=== PATIENT | male | born 1960 ===

== ENCOUNTER 2017-05-30 09:27 | Observation (INO) | payer MEDICAID, OTHER ==
--- NOTE | 2017-05-30 10:19 | ED PDOC ---
HPI: Chest Pain Time Seen by Provider: 05/30/17 10:17 Chief Complaint (Nursing): Chest Pain Chief Complaint (Provider): cp History Per: Patient (56 y/o male h/o HIV last CD4 405 here with chest pain intermittent midsternal since yesterday. States he notices pain at time with respiration but does not feel it is related. Has had coughing x 2 weeks prior. Notes he has been under a lot of emotional stress since of father x 1 year. Denies any radiation of pain.) Past Medical History Reviewed: Historical Data, Nursing Documentation, Vital Signs Vital Signs: Last Vital Signs Temp 97.9 F 05/30/17 09:55 Pulse 77 05/30/17 09:55 Resp 18 05/30/17 09:55 BP 125/62 05/30/17 09:55 Pulse Ox 98 05/30/17 10:19 - Medical History PMH: HIV - Family History Family History: States: No Known Family Hx - Home Medications Home Medications: Ambulatory Orders Medication Instructions Recorded Neomycin/Polymyxin/Hydrocort 1 drop AD QID #1 bottle 03/26/15 [Cortisporin Otic Soln] Ibuprofen [Motrin] 600 mg PO Q8 PRN #15 tab 05/30/17 - Allergies Allergies/Adverse Reactions: Allergies Allergy/AdvReac Type Severity Reaction Status Date / Time No Known Allergies Allergy Verified 03/26/15 10:23 Review of Systems ROS Statement: Except As Marked, All Systems Reviewed And Found Negative Cardiovascular: Positive for: Chest Pain Physical Exam - Reviewed Nursing Documentation Reviewed: Yes Vital Signs Reviewed: Yes - Physical Exam Appears: Positive for: Well, Non-toxic, No Acute Distress Head Exam: Positive for: ATRAUMATIC, NORMAL INSPECTION, NORMOCEPHALIC Skin: Positive for: Normal Color, Warm, DRY Eye Exam: Positive for: EOMI, Normal appearance, PERRL ENT: Positive for: Normal ENT Inspection Neck: Positive for: Normal, Painless ROM Cardiovascular/Chest: Positive for: Regular Rate, Rhythm Respiratory: Positive for: CNT, Normal Breath Sounds Gastrointestinal/Abdominal: Positive for: Normal Exam, Bowel Sounds, Soft Back: Positive for: Normal Inspection Extremity: Positive for: Normal ROM Neurologic/Psych: Positive for: Alert, Oriented - Laboratory Results Result Diagrams: 05/30/17 11:35 05/30/17 11:35 - ECG O2 Sat by Pulse Oximetry: 98 - Progress ED Course And Treament: xry of hand right: no fx noted placed in ulnar gutter splint as he is quite tender at fourth mcp. Will f/u with his orthopedist. Disposition - Clinical Impression Clinical Impression: Hand injury - Patient ED Disposition Is Patient to be Admitted: No - Disposition Disposition: Routine/Home Disposition Time: 12:21 Condition: FAIR Additional Instructions: PLEASE F/U WITH YOUR PRIVATE ORTHOPEDIST FOR FURTHER EVALUATION OF HAND INJURY Prescriptions: Ibuprofen [Motrin] 600 mg PO Q8 PRN #15 tab PRN Reason: Pain, Moderate (4-7) Instructions: Contusion (DC) Forms: [facility] ([place]ian), [facility] ED School/Work Excuse
[2017-05-30 11:52] LABS: ALB/GLOB RATIO 1.1 (1.0-2.1); ALBUMIN 4.1 g/dL (3.5-5.0); ALT/SGPT 38 U/L (21-72); AST/SGOT 26 U/L (17-59); BASO % 0.5 % (0.0-2.0); BLOOD UREA NITROGEN 13 mg/dl (9-20); EOS # 0.1 K/uL (0.0-0.7); EOS % 1.5 % (0.0-4.0); GFR AFRICAN-AMERICAN > 60; GFR NON-AFRICAN AMERICAN > 60; HEMOGLOBIN 13.4 g/dL (12.0-18.0); LYMPH # 2.5 K/uL (1.0-4.3); LYMPH % 37.7 % (20.0-40.0); MAGNESIUM 2.5 MG/DL (1.6-2.3); MEAN CELL VOLUME 94.1 fl (80.0-94.0); MEAN CORPUSCULAR HEMOGLOBIN 32.8 pg (27.0-31.0); MEAN CORPUSCULAR HGB CONC 34.8 g/dL (33.0-37.0); MEAN PLATELET VOLUME 8.4 fl (7.2-11.7); MONO # 0.4 K/uL (0.0-0.8); MONO % 6.8 % (0.0-10.0); NEUT # 3.5 K/uL (1.8-7.0); NEUT % 53.5 % (50.0-75.0); NRBC % 0.1 % (0.0-0.0); RBC 4.09 Mil/uL (4.40-5.90); RED CELL DISTRIBUTION WIDTH 12.7 % (11.5-14.5); WHITE BLOOD COUNT 6.5 K/uL (4.8-10.8)
[2017-05-30 12:14] LABS: BARBITURATES, UR NEGATIVE (NEGATIVE); BENZODIAZEPINES, UR NEGATIVE (NEGATIVE); OPIATES, UR NEGATIVE (NEGATIVE); PHENCYCLIDINE, UR NEGATIVE (NEGATIVE)
--- NOTE | 2017-05-30 12:39 | RAD ---
HISTORY: cp COMPARISON: No prior. FINDINGS: LUNGS: No active pulmonary disease. PLEURA: No significant pleural effusion identified, no pneumothorax apparent. CARDIOVASCULAR: Normal. OSSEOUS STRUCTURES: No significant abnormalities. VISUALIZED UPPER ABDOMEN: Normal. OTHER FINDINGS: None. IMPRESSION: No active disease.
--- NOTE | 2017-05-30 17:17 | CP.PCM.HP ---
History of Present Illness - History of Present Illness History of Present Illness: CC: chest pain HPI: The patient is a 56 y/o man w/ pmh of HIV (not AIDS, CD4 420 as of 2017) and depression presents to the ED w/ chest pain. Patient reports chest pain on the left midsternal region that started yesterday. Patient reports previous similar pain 05/28/2017 that occurred at night and the patient slept it off without interrupting his sleep. The patient reports associated non- productive cough and pain with deep respiration and palpation. The patient reports cough for 2 weeks. The patient works as a local delivery driver, loads , and transports goods. The patient denies headaches, dizziness, SOB, abdominal pain, nausea, vomiting, diarrhea, dysuria, or fever. PMD: Dr. Rojas (last seen 04/25/2017) PMH: HIV not AIDS (viral load 70, CD4 420 as of 04/14/2017) allergies: NKDA meds: Truvada (Emtrictabine/tenofovir) 200-300 mg PO daily, Tivicay ( dolutegravir) 50 mg PO daily, Prezcobix (Darunavir/Cobicistat) 800-150 mg PO daily, buproprion 150 mg PO daily, mirtazapine 7.5 mg PO HS, calcium/vitamin D 500-200 mg PO daily PSH: none FamHx: father 1 year ago SOC: denies smoking, alcohol, and drugs ROS: 12 points assessed and negative unless otherwise reported in HPI ED course: vitals: 97.9 F, 77 beats/min, 125/62 mm Hg, resp 18, O2 98% RA CBC: 6.5>13.4/38.5<310 CMP: 143/4.2, 7/25, 13/0.9, glucose 97, AST 26, ALT 38, alk phos 82 troponin: <0.0120 magnesium: 2.5 D-dimer: 65 urine drug screen: negative EKG: (preliminary) NSR, possible ST depression I, AVL, V5, V6 CXR: no active disease given aspirin 324 mg PO Present on Admission - Present on Admission Any Indicators Present on Admission: No History of DVT/PE: No History of Uncontrolled Diabetes: No Urinary Catheter: No Decubitus Ulcer Present: No Review of Systems - Review of Systems All systems: reviewed and no additional remarkable complaints except - Constitutional Constitutional: absent: Chills, Fever - EENT Eyes: absent: Change in Vision - Cardiovascular Cardiovascular: As Per HPI, Chest Pain. absent: Pain Radiating to Arm/Neck/Jaw , Palpitations, Pedal Edema, Syncope - Respiratory Respiratory: Cough. absent: Dyspnea, Hemoptysis - Gastrointestinal Gastrointestinal: absent: Abdominal Pain, Diarrhea, Nausea, Vomiting - Genitourinary Genitourinary: absent: Dysuria - Integumentary Integumentary: absent: Rash - Neurological Neurological: absent: Dizziness, Headaches Past Patient History - Past Social History Smoking Status: Never Smoked - HEMATOLOGICAL/ONCOLOGICAL Hx Human Immunodeficiency Virus (HIV): Yes - PSYCHIATRIC Hx Substance Use: No - SURGICAL HISTORY Hx Surgeries: No Meds Allergies/Adverse Reactions: Allergies Allergy/AdvReac Type Severity Reaction Status Date / Time No Known Allergies Allergy Verified 03/26/15 10:23 Physical Exam - Constitutional Appears: Non-toxic, No Acute Distress - Head Exam Head Exam: ATRAUMATIC, NORMAL INSPECTION, NORMOCEPHALIC - Eye Exam Eye Exam: Normal appearance - ENT Exam ENT Exam: Mucous Membranes Moist - Respiratory Exam Respiratory Exam: Clear to Auscultation Bilateral. absent: Decreased Breath Sounds, Rales, Rhonchi, Wheezes, Respiratory Distress - Cardiovascular Exam Cardiovascular Exam: REGULAR RHYTHM, RRR. absent: Tachycardia - GI/Abdominal Exam GI & Abdominal Exam: Normal Bowel Sounds, Soft. absent: Distended, Tenderness - Extremities Exam Extremities exam: Positive for: normal inspection. Negative for: calf tenderness, pedal edema, tenderness - Neurological Exam Neurological exam: Alert, Oriented x3 - Skin Skin Exam: Dry Results - Vital Signs Recent Vital Signs: Last Vital Signs Temp 98 F 05/30/17 14:51 Pulse 66 05/30/17 14:51 Resp 18 05/30/17 14:51 BP 110/67 05/30/17 14:51 Pulse Ox 99 05/30/17 14:50 - Labs Result Diagrams: 05/30/17 11:35 05/30/17 11:35 Labs: Laboratory Results - last 24 hr 05/30/17 05/30/17 05/30/17 11:35 11:35 11:35 WBC 6.5 D RBC 4.09 L Hgb 13.4 Hct 38.5 MCV 94.1 H MCH 32.8 H MCHC 34.8 RDW 12.7 Plt Count 310 MPV 8.4 Neut % (Auto) 53.5 Lymph % (Auto) 37.7 [place] % (Auto) 6.8 Eos % (Auto) 1.5 Baso % (Auto) 0.5 Neut # (Auto) 3.5 Lymph # (Auto) 2.5 [place] # (Auto) 0.4 Eos # (Auto) 0.1 Baso # (Auto) 0.0 D-Dimer, Quantitative Sodium 143 Potassium 4.2 Chloride 107 Carbon Dioxide 25 Anion Gap 15 BUN 13 Creatinine 0.9 Est GFR ( Amer) > 60 Est GFR (Non-Af Amer) > 60 Random Glucose 97 Calcium 9.0 Magnesium 2.5 H Total Bilirubin 0.4 AST 26 ALT 38 Alkaline Phosphatase 82 Troponin I < 0.0120 Total Protein 7.7 Albumin 4.1 Globulin 3.7 Albumin/Globulin Ratio 1.1 Urine Opiates Screen Negative Urine Methadone Screen Negative Ur Barbiturates Screen Negative Ur Phencyclidine Scrn Negative Ur Amphetamines Screen Negative U Benzodiazepines Scrn Negative U Oth Cocaine Metabols Negative U Cannabinoids Screen Negative 05/30/17 11:35 WBC RBC Hgb Hct MCV MCH MCHC RDW Plt Count MPV Neut % (Auto) Lymph % (Auto) [place] % (Auto) Eos % (Auto) Baso % (Auto) Neut # (Auto) Lymph # (Auto) [place] # (Auto) Eos # (Auto) Baso # (Auto) D-Dimer, Quantitative 65 Sodium Potassium Chloride Carbon Dioxide Anion Gap BUN Creatinine Est GFR ( Amer) Est GFR (Non-Af Amer) Random Glucose Calcium Magnesium Total Bilirubin AST ALT Alkaline Phosphatase Troponin I Total Protein Albumin Globulin Albumin/Globulin Ratio Urine Opiates Screen Urine Methadone Screen Ur Barbiturates Screen Ur Phencyclidine Scrn Ur Amphetamines Screen U Benzodiazepines Scrn U Oth Cocaine Metabols U Cannabinoids Screen Assessment & Plan - Assessment and Plan (Free Text) Assessment: The patient is a 56 y/o man w/ pmh of HIV (not AIDS, CD4 420 as of 04/14/2017) and depression presents to the ED w/ chest pain Plan: Chest pain - secondary to costochondritis vs rule out ACS - vitals: 97.9 F, 77 beats/min, 125/62 mm Hg, resp 18, O2 98% RA - CBC: 6.5>13.4/38.5<310 - CMP: 143/4.2, 7/25, 13/0.9, glucose 97, AST 26, ALT 38, alk phos 82 - troponin: <0.0120 - magnesium: 2.5 - D-dimer: 65 - urine drug screen: negative - EKG: NSR, possible ST depression in leads I, AVL, V5, V6 - CXR: no active disease - given aspirin 324 mg PO - f/u troponin x2 - f/u repeat EKG - heart healthy diet - nitroglycerin 0.4 mg SL [id number] prn - admit to Tele - monitor for acute changes HIV (not AIDS) - controlled viral load 70, CD4 420 as of 04/14/2017 - on Truvada (Emtrictabine/tenofovir) 200-300 mg PO daily, Tivicay (dolutegravir ) 50 mg PO daily, Prezcobix (Darunavir/Cobicistat) 800-150 mg PO daily - last seen by Dr. Rojas 04/25/2017 Depression - father 1 year ago - on buproprion 150 mg PO daily, mirtazapine 7.5 mg PO HS, calcium/vitamin D 500 -200 mg PO daily - monitor for acute changes Prophylactic measures - DVT: lovenox 40 mg SC daily
[2017-05-31 01:09] VITALS: RESP 18
[2017-05-31] MEDS ORDERED: Emtricitabine-Tenofovir 200 mg-300 mg Tab PO SCH (09:00)
[2017-05-31] MEDS ORDERED: COBICISTAT PO SCH (09:00)
[2017-05-31] MEDS ORDERED: DARUNAVIR PO SCH (09:00)
[2017-05-31] MEDS ORDERED: Enoxaparin 40 mg Syringe SC SCH (09:00)
--- NOTE | 2017-05-31 10:02 | RAD ---
HISTORY: pleuritic chest pain COMPARISON: 05/30/2017 TECHNIQUE: Chest PA and lateral FINDINGS: LUNGS: No active pulmonary disease. PLEURA: No significant pleural effusion identified. No pneumothorax apparent. CARDIOVASCULAR: Normal. OSSEOUS STRUCTURES: No significant abnormalities. VISUALIZED UPPER ABDOMEN: Normal. OTHER FINDINGS: None. IMPRESSION: No active disease.
--- NOTE | 2017-05-31 11:58 | CP.PCM.DIS ---
Provider - Provider Date of Admission: 05/30/17 12:55 Attending physician: Cindy Avery MD Time Spent in preparation of Discharge (in minutes): 45 Diagnosis - Discharge Diagnosis (1) Atypical chest pain Status: Acute Comment: Troponin x3 negative, no acute EKG changes, chronic RBBB, likely pleuritic in nature though CXR is clear. Hospital Course - Lab Results Lab Results: Most Recent Lab Values WBC 6.5 K/uL (4.8-10.8) D 05/30/17 11:35 RBC 4.09 Mil/uL (4.40-5.90) L 05/30/17 11:35 Hgb 13.4 g/dL (12.0-18.0) 05/30/17 11:35 Hct 38.5 % (35.0-51.0) 05/30/17 11:35 MCV 94.1 fl (80.0-94.0) H 05/30/17 11:35 MCH 32.8 pg (27.0-31.0) H 05/30/17 11:35 MCHC 34.8 g/dL (33.0-37.0) 05/30/17 11:35 RDW 12.7 % (11.5-14.5) 05/30/17 11:35 Plt Count 310 K/uL (130-400) 05/30/17 11:35 MPV 8.4 fl (7.2-11.7) 05/30/17 11:35 Neut % (Auto) 53.5 % (50.0-75.0) 05/30/17 11:35 Lymph % (Auto) 37.7 % (20.0-40.0) 05/30/17 11:35 [place] % (Auto) 6.8 % (0.0-10.0) 05/30/17 11:35 Eos % (Auto) 1.5 % (0.0-4.0) 05/30/17 11:35 Baso % (Auto) 0.5 % (0.0-2.0) 05/30/17 11:35 Neut # (Auto) 3.5 K/uL (1.8-7.0) 05/30/17 11:35 Lymph # (Auto) 2.5 K/uL (1.0-4.3) 05/30/17 11:35 [place] # (Auto) 0.4 K/uL (0.0-0.8) 05/30/17 11:35 Eos # (Auto) 0.1 K/uL (0.0-0.7) 05/30/17 11:35 Baso # (Auto) 0.0 K/uL (0.0-0.2) 05/30/17 11:35 D-Dimer, Quantitative 65 ng/mlDDU (0-230) 05/30/17 11:35 Sodium 143 mmol/l (132-148) 05/30/17 11:35 Potassium 4.2 MMOL/L (3.6-5.0) 05/30/17 11:35 Chloride 107 mmol/L (98-107) 05/30/17 11:35 Carbon Dioxide 25 mmol/L (22-30) 05/30/17 11:35 Anion Gap 15 (10-20) 05/30/17 11:35 BUN 13 mg/dl (9-20) 05/30/17 11:35 Creatinine 0.9 mg/dl (0.8-1.5) 05/30/17 11:35 Est GFR ( Amer) > 60 05/30/17 11:35 Est GFR (Non-Af Amer) > 60 05/30/17 11:35 Random Glucose 97 mg/dL (75-110) 05/30/17 11:35 Calcium 9.0 mg/dL (8.4-10.2) 05/30/17 11:35 Magnesium 2.5 MG/DL (1.6-2.3) H 05/30/17 11:35 Total Bilirubin 0.4 mg/dl (0.2-1.3) 05/30/17 11:35 AST 26 U/L (17-59) 05/30/17 11:35 ALT 38 U/L (21-72) 05/30/17 11:35 Alkaline Phosphatase 82 U/L (38-126) 05/30/17 11:35 Troponin I < 0.0120 ng/mL (0.00-0.120) 05/31/17 06:00 Total Protein 7.7 G/DL (6.3-8.2) 05/30/17 11:35 Albumin 4.1 g/dL (3.5-5.0) 05/30/17 11:35 Globulin 3.7 gm/dL (2.2-3.9) 05/30/17 11:35 Albumin/Globulin Ratio 1.1 (1.0-2.1) 05/30/17 11:35 Urine Opiates Screen Negative (NEGATIVE) 05/30/17 11:35 Urine Methadone Screen Negative (NEGATIVE) 05/30/17 11:35 Ur Barbiturates Screen Negative (NEGATIVE) 05/30/17 11:35 Ur Phencyclidine Scrn Negative (NEGATIVE) 05/30/17 11:35 Ur Amphetamines Screen Negative (NEGATIVE) 05/30/17 11:35 U Benzodiazepines Scrn Negative (NEGATIVE) 05/30/17 11:35 U Oth Cocaine Metabols Negative (NEGATIVE) 05/30/17 11:35 U Cannabinoids Screen Negative (NEGATIVE) 05/30/17 11:35 - Hospital Course Hospital Course: Patient seen and examined at bedside with attending. 56M admitted for r/o ACS. EKG without acute changes (chronic RBBB), Troponins negative x3, stable for follow up as outpatient. Pt currently denying any chest pain or difficulty breathing. No new prescriptions Discharge Exam - Head Exam Head Exam: ATRAUMATIC, NORMAL INSPECTION, NORMOCEPHALIC - Eye Exam Eye Exam: EOMI, Normal appearance Pupil Exam: NORMAL ACCOMODATION, PERRL - Respiratory Exam Respiratory Exam: Clear to PA & Lateral, NORMAL BREATHING PATTERN - Cardiovascular Exam Cardiovascular Exam: REGULAR RHYTHM, +S1, +S2 - GI/Abdominal Exam GI & Abdominal Exam: Normal Bowel Sounds, Soft. absent: Tenderness - Neurological Exam Neurological exam: Alert, Oriented x3 - Psychiatric Exam Psychiatric exam: Normal Affect, Normal Mood - Skin Skin Exam: Dry, Intact, Warm Discharge Plan - Follow Up Plan Condition: GOOD Disposition: HOME/ ROUTINE Patient education suggested?: Yes Instructions: Chest Pain That Is Not Caused by the Heart (DC), Costochondritis (DC) Referrals: Bernard Marsh MD [Family Provider] - (Your classification case manager will contact you)
[2017-05-31 12:15] VITALS: BP 110/68; PULSE 70; TEMP 98; O2SAT 97
--- NOTE | 2017-06-01 18:23 | CARD ---
APPROVED REPORT EKG Measurement Heart [id number] OK [id number] <Conclusion> Normal sinus rhythm Right bundle branch block Abnormal ECG
== END 2017-05-31 15:07 | disposition home or self-care (01) ==
LOC: H.ER 09:27 → H.ERHOLD 12:55 → H.TEL 21:50
PROVIDERS: ADMIT Family Medicine Geriatric Medicine; ATTEND Family Medicine Geriatric Medicine
DX: R07.89 Other chest pain (principal); I45.19 Other right bundle-branch block; Z21 Asymptomatic human immunodeficiency virus [HIV] infection status; F32.9 Major depressive disorder, single episode, unspecified; Z79.82 Long term (current) use of aspirin
CPT/HCPCS: 36415; 71045; 71046; 80053; 80324; 80345; 80346; 80349; 80353; 80358; 80361; 83735; 83992; 84484; 85025; 85378; 99285; G0378; J1650

== ENCOUNTER 2018-05-06 09:10 | Emergency (ER) | payer OTHER ==
[2018-05-06 09:15] VITALS: BMI 26.5
[2018-05-06 09:16] VITALS: BP 118/77; PULSE 80; RESP 17; TEMP 97.7; O2SAT 97
--- NOTE | 2018-05-06 12:14 | ED PDOC ---
HPI: General Adult Time Seen by Provider: 05/06/18 09:45 Chief Complaint (Nursing): ENT Problem Chief Complaint (Provider): red eyes History Per: Patient History/Exam Limitations: no limitations Onset/Duration Of Symptoms: Days Have you had recent travel within the past 21 days to any of the following countries: [place], [place], [place] or [place]?: No Current Symptoms Are (Timing): Still Present Additional History Per: Patient Additional Complaint(s): 57yo male, with history of HIV and depression, comes to ER reporting throat pain, bilateral eye redness with a watery discharge. He also reports associated itchiness and foreign body sensation. Patient otherwise denies any fever, chills, chest pain, cough or shortness of breath. No additional complaints. Past Medical History Reviewed: Historical Data, Nursing Documentation, Vital Signs Vital Signs: Last Vital Signs Temp 97.7 F 05/06/18 09:14 Pulse 80 05/06/18 09:14 Resp 17 05/06/18 09:14 BP 118/77 05/06/18 09:14 Pulse Ox 97 05/06/18 09:14 - Medical History PMH: Depression, HIV Denies: Chronic Kidney Disease - Surgical History Surgical History: No Surg Hx - Family History Family History: States: No Known Family Hx - Social History Current smoker - smoking cessation education provided: No Alcohol: None Drugs: Denies - Home Medications Home Medications: Ambulatory Orders Medication Instructions Recorded RX: Bupropion HCl [Bupropion Xl] 150 mg PO DAILY 05/30/17 RX: Calcium/Vitamin D [Oyster 1 tab PO DAILY 05/30/17 Shell Calcium/Vitamin D 500 mg-200 IU] RX: Darunavir/Cobicistat 1 tab PO DAILY 05/30/17 [Prezcobix 800 mg-150 mg Tablet] RX: Dolutegravir Sodium [Tivicay] 50 mg PO DAILY 05/30/17 RX: Emtricitabine/Tenofovir Diso 1 tab PO DAILY 05/30/17 [Truvada 200 MG-300 MG] RX: Mirtazapine [Remeron] 7.5 mg PO HS 05/30/17 RX: Tobramycin 0.3% [Tobrex 0.3% 1 drop OU QID #1 bottle 05/06/18 [place]] - Allergies Allergies/Adverse Reactions: Allergies Allergy/AdvReac Type Severity Reaction Status Date / Time No Known Allergies Allergy Verified 05/06/18 09:26 Review of Systems ROS Statement: Except As Marked, All Systems Reviewed And Found Negative Constitutional: Negative for: Fever, Chills Eyes: Positive for: Pain, Redness ENT: Positive for: Throat Pain Cardiovascular: Negative for: Chest Pain Respiratory: Negative for: Cough, Shortness of Breath Physical Exam - Reviewed Nursing Documentation Reviewed: Yes Vital Signs Reviewed: Yes - Physical Exam Appears: Positive for: Non-toxic, No Acute Distress Head Exam: Positive for: ATRAUMATIC, NORMAL INSPECTION, NORMOCEPHALIC Skin: Positive for: Normal Color Eye Exam: Positive for: EOMI, PERRL, Conjunctival injection (bilateral red injection; watery discharge noted but no purulent discharge). Negative for: Periorbital swelling, Periorbital tenderness, Scleral icterus ENT: Negative for: Pharyngeal Erythema Neck: Positive for: Normal, Supple Cardiovascular/Chest: Positive for: Regular Rate, Rhythm Respiratory: Positive for: Normal Breath Sounds Gastrointestinal/Abdominal: Positive for: Soft. Negative for: Tenderness Back: Positive for: Normal Inspection Extremity: Positive for: Normal ROM Neurologic/Psych: Positive for: Alert, Oriented - ECG O2 Sat by Pulse Oximetry: 97 (RA) Pulse Ox Interpretation: Normal Medical Decision Making Medical Decision Makinyo male with conjunctival injection, r/o viral conjunctivitis Complaints of throat pain, r/o strep throat Plan: -- Rapid strep -- Tylenol 650mg PO 1408 Rapid strep negative. pt sleeping on reeval. states feels comfortable. Patient likely w/ viral vs. bacterial conjuctivitis. Given antibiotic eye drops and instructed to follow up with PMD in 2-3 days. Scribe Attestation: Documented by Juliann Horne acting as a scribe for Rene Botello MD Provider Attestation: All medical record entries made by the Scribe were at my direction and personally dictated by me. I have reviewed the chart and agree that the record accurately reflects my personal performance of the history, physical exam, medical decision making, and the department course for this patient. I have also personally directed, reviewed, and agree with the discharge instructions and disposition. Disposition - Clinical Impression Clinical Impression: Conjunctivitis - Patient ED Disposition Is Patient to be Admitted: No Counseled Patient/Family Regarding: Studies Performed, Diagnosis, Need For Followup - Disposition Disposition: Routine/Home Disposition Time: 14:08 Condition: IMPROVED Additional Instructions: follow up with the clinic in 2 days return to the ED with any worsening or concerning symptoms Prescriptions: RX: Tobramycin 0.3% [Tobrex 0.3% Ophth Soln] 1 drop OU QID #1 bottle Instructions: Conjunctivitis ([place]) Forms: [employer] ([place]ian)
== END 2018-05-06 14:15 | disposition home or self-care (01) ==
LOC: H.ER 09:10
DX: H10.9 Unspecified conjunctivitis (principal); Z21 Asymptomatic human immunodeficiency virus [HIV] infection status; F32.9 Major depressive disorder, single episode, unspecified